=== PATIENT | female | born 1985 ===

== ENCOUNTER 2020-10-06 14:20 | Inpatient (IN) | payer OTHER ==
[2020-10-06] MEDS: ELECTROLYTE-148 SOLN 1,000 ML IV SCH ×2 (15:30→18:04)
[2020-10-06] MEDS ORDERED: ELECTROLYTE-148 SOLN 500 ML IV ONE (15:53)
[2020-10-06] MEDS ORDERED: CITRIC ACID/SODIUM CITRATE 30 ML UNIT-DOSE CUP PO ONE (15:53)
[2020-10-06 16:01] LABS: BASO % 0.2 % (0-2.0); EOS % 1.8 % (0-4.5); HEMATOCRIT 40.6 % (32.4-45.2); HEMOGLOBIN 13.5 GM/dL (10.7-15.3); MCH 30.5 pg (25.7-33.7); MCHC 33.3 g/dl (32.0-36.0); MEAN CELL VOLUME 91.7 fl (80-96); MEAN PLT VOLUME 8.3 fl (7.5-11.1); PLATELET COUNT 247 K/MM3 (134-434); RBC 4.42 M/mm3 (3.60-5.2); RDW 13.3 % (11.6-15.6); WHITE BLOOD COUNT 12.2 K/mm3 (4.0-10.0)
[2020-10-06 16:10] LABS: INR 0.89 (0.83-1.09)
[2020-10-06 16:12] LABS: ACTIVATED PTT 27.4 SECONDS (25.2-36.5)
[2020-10-06 16:31] LABS: POTASSIUM 3.8 mmol/L (3.5-5.1)
[2020-10-06 16:33] VITALS: BMI 33.3
[2020-10-06 16:33] LABS: ALBUMIN 3.1 g/dl (3.4-5.0); BLOOD UREA NITROGEN 7.7 mg/dL (7-18); CALCIUM 9.5 mg/dL (8.5-10.1)
[2020-10-06 16:36] LABS: CREATININE 0.5 mg/dL (0.55-1.3)
[2020-10-06 16:38] LABS: BILIRUBIN,TOTAL 0.4 mg/dL (0.2-1); TOT PROT 7.1 g/dl (6.4-8.2)
[2020-10-06] MEDS ORDERED: CEFAZOLIN 2 GM/D5W 2 GM/50 ML ML IVPB ONE (20:15)
[2020-10-06] MEDS ORDERED: OXYTOCIN 20 UNITS in 0.9% NS 20 UNIT/1,000 ML INFUS.BAG IV ONE ×2 (20:15→23:08)
[2020-10-06] MEDS ORDERED: morphine SULFATE/PF 0.5 MG/ML (2cc Syringe - QUVA) ONE (20:16)
[2020-10-06] MEDS ORDERED: KETOROLAC TROMETHAMINE 30 MG/1 ML VIAL ONE (20:36)
[2020-10-06] MEDS ORDERED: OXYTOCIN 10 UNITS/ML VIAL ONE (20:36)
[2020-10-06] MEDS ORDERED: METHYLERGONOVINE MALEATE 0.2 MG/1 ML AMP IM PRN (21:31)
[2020-10-06] MEDS ORDERED: SENNOSIDES/DOCUSATE COMBO (SENNA PLUS) TABLET (UD) PO PRN (21:31)
[2020-10-06] MEDS ORDERED: IBUPROFEN 800 MG/8 ML IJ IVPB PRN (21:31)
[2020-10-06] MEDS: OXYTOCIN 20 UNITS in 0.9% NS 20 UNIT/1,000 ML INFUS.BAG IV SCH (23:17)
[2020-10-06 23:33] LABS: CORD BASE EXCESS -3.9 mmol/L (0-2); CORD HCO3 22.7 mmHg (20-29); CORD PCO2 46.1 mmHg (30-78); CORD pH 7.31 (7.14-7.44)
[2020-10-06 23:41] LABS: CORD HCO3 22.8 mmHg (20-29); CORD PCO2 60.7 mmHg (30-78); CORD pH 7.192 (7.14-7.44)
[2020-10-07] MEDS ORDERED: ONDANSETRON 4 MG/2 ML VIAL IVPUSH PRN (00:12)
[2020-10-07] MEDS: CEFAZOLIN 1 GM/D5W 1 GM/50 ML BAG IVPB SCH ×3 (04:55→19:56)
[2020-10-07] MEDS ORDERED: oxyCODONE HCL 5 MG TABLET PO PRN (06:00)
[2020-10-07 08:10] LABS: BASO % 0.3 % (0-2.0); EOS % 1.3 % (0-4.5); HEMATOCRIT 36.6 % (32.4-45.2); HEMOGLOBIN 12.3 GM/dL (10.7-15.3); LYMPH % 10.7 % (8-40); MCH 31.1 pg (25.7-33.7); MCHC 33.7 g/dl (32.0-36.0); MEAN CELL VOLUME 92.4 fl (80-96); MEAN PLT VOLUME 8.2 fl (7.5-11.1); NEUT % 80.7 % (42.8-82.8); PLATELET COUNT 202 K/MM3 (134-434); RBC 3.96 M/mm3 (3.60-5.2); RDW 13.3 % (11.6-15.6); WHITE BLOOD COUNT 11.9 K/mm3 (4.0-10.0)
[2020-10-07] MEDS ORDERED: DIPHTH,PERTUSS(ACELL),TET 0.5 ML DISP.SYRIN IM ONE (10:00)
[2020-10-07] MEDS: ENOXAPARIN NA (PORCINE) 40 MG/0.4 ML DISP.SYRIN SQ SCH (10:18)
[2020-10-07] MEDS: PRENATAL VITAMINS W/ FOLIC ACID TABLET (FP) PO SCH (10:18)
[2020-10-07] MEDS: FERROUS SO4 325 MG TABLET (FP) PO SCH ×2 (10:19→17:51)
[2020-10-07] MEDS: ACETAMINOPHEN 325 MG TABLET (FP) PO PRN (19:57)
[2020-10-07] MEDS: IBUPROFEN 600 MG TABLET (FP) PO PRN (19:58)
[2020-10-07] MEDS ORDERED: BISACODYL 10 MG SUPP.RECT RC PRN (21:31)
[2020-10-08] MEDS: ACETAMINOPHEN 325 MG TABLET (FP) PO PRN ×4 (06:42→21:22)
[2020-10-08] MEDS: IBUPROFEN 600 MG TABLET (FP) PO PRN ×4 (06:43→21:20)
[2020-10-08 08:34] LABS: POC NITRAZINE POS
[2020-10-08] MEDS: ENOXAPARIN NA (PORCINE) 40 MG/0.4 ML DISP.SYRIN SQ SCH (11:11)
[2020-10-08] MEDS: PRENATAL VITAMINS W/ FOLIC ACID TABLET (FP) PO SCH (11:11)
[2020-10-08] MEDS: SIMETHICONE 80 MG TAB.CHEW (FP) PO PRN (11:43)
[2020-10-08] MEDS: FERROUS SO4 325 MG TABLET (FP) PO SCH ×2 (16:47→17:07)
[2020-10-08] MEDS: OXYTOCIN 20 UNITS in 0.9% NS 20 UNIT/1,000 ML INFUS.BAG IV SCH (21:20)
[2020-10-09] MEDS: OXYTOCIN 20 UNITS in 0.9% NS 20 UNIT/1,000 ML INFUS.BAG IV SCH (00:47)
[2020-10-09] MEDS: FERROUS SO4 325 MG TABLET (FP) PO SCH (08:51)
[2020-10-09 09:30] LABS: BASO % 0.2 % (0-2.0); EOS % 2.7 % (0-4.5); HEMATOCRIT 37.8 % (32.4-45.2); HEMOGLOBIN 12.4 GM/dL (10.7-15.3); LYMPH % 8.6 % (8-40); MCH 30.8 pg (25.7-33.7); MCHC 32.9 g/dl (32.0-36.0); MEAN CELL VOLUME 93.8 fl (80-96); MEAN PLT VOLUME 8.1 fl (7.5-11.1); MONO % 6.1 % (3.8-10.2); NEUT % 82.4 % (42.8-82.8); PLATELET COUNT 255 K/MM3 (134-434); RBC 4.03 M/mm3 (3.60-5.2); RDW 13.5 % (11.6-15.6); WHITE BLOOD COUNT 11.6 K/mm3 (4.0-10.0)
[2020-10-09] MEDS: PRENATAL VITAMINS W/ FOLIC ACID TABLET (FP) PO SCH (10:58)
[2020-10-09] MEDS: SIMETHICONE 80 MG TAB.CHEW (FP) PO PRN (10:58)
[2020-10-09] MEDS: ENOXAPARIN NA (PORCINE) 40 MG/0.4 ML DISP.SYRIN SQ SCH (10:59)
[2020-10-09] MEDS: IBUPROFEN 600 MG TABLET (FP) PO PRN (10:59)
[2020-10-09] MEDS: ACETAMINOPHEN 325 MG TABLET (FP) PO PRN (10:59)
[2020-10-09 11:59] VITALS: BP 107/70; PULSE 76; TEMP 98.1
== END 2020-10-09 12:15 | disposition home or self-care (01) | DRG 540 ==
LOC: JLDR 14:20 → J3W 10-07 00:10
PROVIDERS: ADMIT Obstetrics & Gynecology; ATTEND Obstetrics & Gynecology
PROC: 10D00Z1 Extraction of Products of Conception, Low, Open Approach (ICD-10-PCS; principal; 2020-10-06)
DX: O34.211 Maternal care for low transverse scar from previous cesarean delivery (principal); O42.02 Full-term premature rupture of membranes, onset of labor within 24 hours of rupture; Z3A.39 39 weeks gestation of pregnancy; Z37.0 Single live birth
CPT/HCPCS: 36415; 36600; 80053; 82803; 83986-QW; 85025; 85461; 85610; 85730; 86780; 86850; 86870; 86900; 86901; 86902; 88307-TC; 90715; C9803; U0003